=== PATIENT | female | born 1990 | race Caucasian/White ===

== ENCOUNTER 2016-12-06 11:39 | Emergency (ER) | payer MEDICAID ==
[~2016-12-06] VITALS: Ht 170.2 cm; Wt 77.1 kg
[~2016-12-06 11:39] MED LIST: IBUP800T24 PO
[2016-12-06] MEDS: SODIUM CHLORIDE 0.9% 1,000 ML IVB ONE (12:39)
[2016-12-06] MEDS: ONDANSETRON HCL 4 MG/2 ML VIAL IV ONE (12:39)
[2016-12-06] MEDS: HYDROmorphone HCL 2 MG/ML VL IV ONE ×2 (12:39→15:35)
[2016-12-06 12:41] LABS: Basophils # (auto) 0 uL; Basophils % (auto) 0.3 % (0.0-2.0); Eosinophils # (auto) 0 uL; Eosinophils % (auto) 0.1 % (0.0-7.0); Hematocrit 44.6 % (36.0-46.0); Lymphocytes # (auto) 1.7 uL; Lymphocytes % (auto) 15.1 % (10.0-50.0); Mean Corpuscular Hemoglobin 28.8 pg (28.0-32.0); Mean Corpuscular Hgb Conc. 33.5 g/dL (32.0-36.0); Mean Corpuscular Volume 85.7 fL (80.0-100.0); Mean Platelet Volume 8.6 fL (7.4-10.4); Monocytes # (auto) 0.6 uL; Monocytes % (auto) 5.3 % (0.0-12.0); Neutrophils # (auto) 8.7 uL; Neutrophils % (auto) 79.2 % (37.0-80.0); Platelet Count (auto) 335 10^3/uL (140-450); Red Cell Distribution Width 15.6 % (11.6-16.0)
[2016-12-06 13:07] LABS: Albumin 4.3 g/dL (3.4-5.0); BUN/Creatinine Ratio 8.2; Bilirubin, Total 0.8 mg/dL (0.2-1.0); Calcium 9.9 mg/dL (8.5-10.1); Total Protein 8.8 g/dL (6.4-8.2)
[2016-12-06 14:10] LABS: Urine Bilirubin Negative (Negative); Urine Blood Negative /uL (Negative); Urine Color Yellow (Yellow); Urine Glucose Normal (Normal); Urine Ketone Negative (Negative); Urine Mucus FEW (None Seen); Urine Nitrite Negative (Negative); Urine RBC 3 /hpf (0 - 4); Urine Squamous Epithelial Cell FEW /hpf (<5); Urine Urobilinogen Normal (Negative)
[2016-12-06 16:36] VITALS: BP 111/73
== END 2016-12-06 16:37 | disposition home or self-care (01) ==
LOC: ER 11:39
DX: N39.0 Urinary tract infection, site not specified (principal); N83.209 Unspecified ovarian cyst, unspecified side; Z90.49 Acquired absence of other specified parts of digestive tract; Z90.89 Acquired absence of other organs
CPT/HCPCS: 36415; 76856; 80053; 81001; 83690; 84702; 85025; 94761; 96361; 96374; 96375; 96376; 99285; J1170; J2405; J7030

== ENCOUNTER 2017-01-06 12:06 | Emergency (ER) | payer MEDICAID ==
[~2017-01-06] VITALS: Ht 167.6 cm; Wt 79.8 kg
[2017-01-06 14:12] LABS: Basophils # (auto) 0 uL; Basophils % (auto) 0.4 % (0.0-2.0); Eosinophils # (auto) 0.1 uL; Eosinophils % (auto) 0.5 % (0.0-7.0); Hematocrit 41.9 % (36.0-46.0); Hemoglobin 14.1 g/dL (12.2-16.2); Lymphocytes # (auto) 1.7 uL; Lymphocytes % (auto) 16.4 % (10.0-50.0); Mean Corpuscular Hemoglobin 29.7 pg (28.0-32.0); Mean Corpuscular Hgb Conc. 33.7 g/dL (32.0-36.0); Mean Corpuscular Volume 88.1 fL (80.0-100.0); Mean Platelet Volume 8.5 fL (7.4-10.4); Monocytes # (auto) 0.3 uL; Monocytes % (auto) 2.6 % (0.0-12.0); Neutrophils # (auto) 8.4 uL; Neutrophils % (auto) 80.1 % (37.0-80.0); Platelet Count (auto) 322 10^3/uL (140-450); Red Cell Distribution Width 14.6 % (11.6-16.0); White Blood Cell 10.4 10^3/uL (4.4-10.8)
[2017-01-06 14:29] LABS: Albumin 3.9 g/dL (3.4-5.0); BUN/Creatinine Ratio 9.7; Bilirubin, Total 0.5 mg/dL (0.2-1.0); Calcium 9.6 mg/dL (8.5-10.1); Magnesium 2.4 mg/dL (1.6-2.6); Total Protein 8.3 g/dL (6.4-8.2)
[2017-01-06] MEDS ORDERED: KETOROLAC TROMETH 60MG/2ML VIAL IM ONE (15:30)
[2017-01-06] MEDS ORDERED: ONDANSETRON ODT 4 MG TAB PO ONE (15:30)
[2017-01-06 15:40] VITALS: BP 115/72
== END 2017-01-06 16:07 | disposition home or self-care (01) ==
LOC: ER 12:06
DX: G89.29 Other chronic pain (principal); R10.11 Right upper quadrant pain; R11.0 Nausea; Z90.49 Acquired absence of other specified parts of digestive tract
CPT/HCPCS: 36415; 80053; 82150; 83690; 83735; 85025; 96372; 99284; J1885; Q0162